=== PATIENT | male | born 1965 | race Caucasian/White ===

== ENCOUNTER 2018-04-16 10:20 | Inpatient (IN) | payer MEDICAID ==
[~2018-04-16] VITALS: Ht 170.2 cm; Wt 100.7 kg
[~2018-04-16 10:20] MED LIST: ECO81 PO; LIPI20 PO; METOPROLOL TART25 M1 PO; PRILOSEC20 MG PO; ZES10 PO
[2018-04-16 10:32] VITALS: Ht 170.2 cm; Wt 100.7 kg
[2018-04-16 11:07] LABS: BASOPHIL % 0.8 % (0-2); PLATELET COUNT 244 x10^3mcL (130-400)
[2018-04-16 11:13] LABS: CALCIUM 8.6 mg/dL (8.5-10.1); CARBON DIOXIDE 28.4 mmol/L (21-32); CHLORIDE SERUM 107 mmol/L (98-107); CREATININE SERUM 0.9 mg/dL (0.7-1.3); GFR1 > 60 mL/min; GLUCOSE SERUM 120 mg/dL (74-106); SODIUM SERUM 141 mmol/L (136-145)
[2018-04-16 15:47] LABS: CHOLESTEROL/HDL RATIO 3.1; PHOSPHOROUS 3.7 mg/dL (2.5-4.9)
[2018-04-16 15:48] LABS: T3 TOTAL 1.14 ng/mL
[2018-04-16 15:59] LABS: FREE T4 0.96 ng/dL (0.76-1.46); FREE THYROXINE INDEX 2.7 ug/dL (1.4-4.5); T4(THYROXINE) 7.2 ug/dL (4.7-13.3)
[2018-04-16 16:14] VITALS: BP 168/107
[2018-04-16 17:24] VITALS: BP 170/103
[2018-04-16 19:50] VITALS: BP 157/93
[2018-04-17 00:34] VITALS: BP 125/95
[2018-04-17 05:53] VITALS: BP 147/92
[2018-04-17 06:26] LABS: BASOPHIL % 0.9 % (0-2); PLATELET COUNT 254 x10^3mcL (130-400); RED CELL DISTRIBUTION WIDTH 12.2 % (11.5-14.5)
[2018-04-17 06:38] LABS: CALCIUM 8.5 mg/dL (8.5-10.1); CARBON DIOXIDE 25.8 mmol/L (21-32); CHLORIDE SERUM 102 mmol/L (98-107); CREATININE SERUM 0.9 mg/dL (0.7-1.3); GFR1 > 60 mL/min; GLUCOSE SERUM 96 mg/dL (74-106); MAGNESIUM 2.2 mg/dL (1.8-2.4); PHOSPHOROUS 3.8 mg/dL (2.5-4.9); SODIUM SERUM 138 mmol/L (136-145)
[2018-04-17 08:57] VITALS: BP 153/100
[2018-04-17 13:11] VITALS: BP 148/100
[2018-04-17] MEDS ORDERED: LISINOPRIL40 MG PO (15:03)
[2018-04-17] MEDS ORDERED: NIFEDIPINE30 MG PO (15:04)
[2018-04-17 15:33] VITALS: BP 142/93
[2018-04-17 15:34] VITALS: BP 142/93
== END 2018-04-17 15:58 | disposition home or self-care (01) | DRG 190 ==
LOC: ED 10:20 → DU 15:00
PROVIDERS: Emergency Medicine; Internal Medicine
DX: I21.4 Non-ST elevation (NSTEMI) myocardial infarction (principal); E78.5 Hyperlipidemia, unspecified; I16.0 Hypertensive urgency; F10.10 Alcohol abuse, uncomplicated; M89.9 Disorder of bone, unspecified; Z89.022 Acquired absence of left finger(s); Z79.82 Long term (current) use of aspirin; Z68.34 Body mass index [BMI] 34.0-34.9, adult; Z91.14 Patient's other noncompliance with medication regimen; Y90.0 Blood alcohol level of less than 20 mg/100 ml
CPT/HCPCS: 83880; 84439; 90658; J3010; J3490; Q0092